=== PATIENT | female | born 1955 | race Caucasian/White ===

== ENCOUNTER 2017-02-26 12:25 | Emergency (ER) | payer MEDICAID ==
[~2017-02-26] VITALS: Ht 154.9 cm; Wt 54.4 kg
[~2017-02-26 12:25] MED LIST: ALPR2TAB7 PO; CITA40TA22 PO; COLC0.6C3 PO; MEDR2.5T7 PO; METR500T PO; MORP30TA7 PO; NITR0.4T6 SL; OMEP40CA PO; OXYC1TAB8 PO; PROG100C3 PO
[2017-02-26 12:29] VITALS: BP 87/57
[2017-02-26] MEDS ORDERED: ACETAMINOPHEN 325 MG TABLET PO ONE (13:00)
[2017-02-26] MEDS ORDERED: ACETAMINOPHEN ES 500 MG TABLET ONE (13:16)
[2017-02-26] MEDS ORDERED: IBUPROFEN 600 MG TABLET PO ONE ×2 (13:33→14:00)
== END 2017-02-26 14:04 | disposition home or self-care (01) ==
LOC: ER 12:27
DX: S93.401A Sprain of unspecified ligament of right ankle, initial encounter (principal); W10.9XXA Fall (on) (from) unspecified stairs and steps, initial encounter; Y93.89 Activity, other specified; Y92.89 Other specified places as the place of occurrence of the external cause; Y99.8 Other external cause status; S90.31XA Contusion of right foot, initial encounter; S70.01XA Contusion of right hip, initial encounter; I10 Essential (primary) hypertension; Z90.49 Acquired absence of other specified parts of digestive tract; Z98.890 Other specified postprocedural states; Z88.8 Allergy status to other drugs, medicaments and biological substances; M10.9 Gout, unspecified
CPT/HCPCS: 73510-TC; 73610-TC; 73620-TC; A4606; Z7610